=== PATIENT | female | born 1950 | race Caucasian/White ===

== ENCOUNTER 2021-10-17 10:45 | Outpatient (CLI) | payer MEDICARE, SELFPAY ==
[2021-10-17 11:35] LABS: Basophils Percent Auto 0.6 % (0.2-1.2); Eosinophils Absolute Auto 0.1 K/mm3 (0-0.3); Eosinophils Percent Auto 1.1 % (0-4.4); Hematocrit 43.9 % (37.0-47.0); Hemoglobin 14.3 g/dL (12.0-15.0); Immature Granulocyte Absolute 0.02 K/mm3 (0.00-0.031); Immature Granulocyte Percent A 0.3 % (0-0.5); Lymphocytes Absolute Auto 1.59 K/mm3 (0.9-3.2); Lymphocytes Percent Auto 25.1 % (18.3-44.2); Mean Corpuscular HGB Conc 32.6 g/dl (32-36); Mean Platelet Volume 9.3 fl (7.4-10.4); Monocytes Absolute Auto 0.5 K/mm3 (0.1-0.6); Monocytes Percent Auto 7.7 % (2.6-8.5); Neutrophils Absolute Auto 4.1 K/mm3 (1.3-6.7); Neutrophils Percent Auto 65.2 % (45.5-73.1); Platelet Count Result 374 k/mm3 (150-375); Red Blood Count 4.93 M/mm3 (4.2-5.4); Red Cell Distribution Width 13.8 % (11.5-14.5); White Blood Count 6.3 K/mm3 (4.5-10.0)
[2021-10-17 12:01] LABS: Alanine Aminotransferase 17 U/L (4-35); Albumin Level 4.4 g/dL (3.5-5.1); Alkaline Phosphatase 161 U/L (38-126); Anion Gap 9 mmol/L (8-16); Aspartate Amino Transferase 22 U/L (14-36); Bilirubin,Total 0.6 mg/dL (0.2-1.3); Blood Urea Nitrogen 15 mg/dL (7-17); Calcium 9.4 mg/dL (8.4-10.2); Carbon Dioxide 27 mmol/L (22-30); Chloride 103 mmol/L (98-107); Cholesterol 204 mg/dL (0-200); Estimated Glomerular Filt Rate > 60; Glucose 126 mg/dL (65-110); HDL Direct 54 mg/dL; Potassium 4.1 mmol/L (3.4-5.0); Sodium 139 mmol/L (137-145); Triglycerides 144 mg/dL (<150)
[2021-10-17 12:06] LABS: LDL Cholesterol Direct 100 mg/dL
[2021-10-17 12:39] LABS: Vitamin D 25 Hydroxy < 12.8 ng/mL
[2021-10-21 19:24] LABS: Mitochondrial (M2) Ab (IgG) 52.8 U (<=20.0)
== END 2021-10-17 10:46 | disposition home or self-care (01) ==
PROVIDERS: PCP Internal Medicine; Visit Provider Internal Medicine
DX: R53.83 Other fatigue (principal); R73.9 Hyperglycemia, unspecified; R74.8 Abnormal levels of other serum enzymes; E55.9 Vitamin D deficiency, unspecified; E78.5 Hyperlipidemia, unspecified
CPT/HCPCS: 36415; 80053; 80061; 82306; 82607; 82746; 83520; 84443; 85025

== ENCOUNTER 2022-02-23 00:52 | Day surgery (SDC) | payer MEDICARE, SELFPAY ==
[2021-11-15 11:55] VITALS: BMI 38.9
[2021-12-26 12:45] VITALS: BMI 38.9
[2022-02-09 16:06] VITALS: BMI 36.8
--- NOTE | 2022-02-22 13:25 | WPDANESEPPF ---
Anes - Initial Pre Proc Eval Procedure: Operation Date: 02/23/22 08:00 Proposed Procedures p Esophagogastroduodenoscopy & Screen Colonoscopy - Joe Madrigal MD Date/Time: 02/22/22 13:25 Surgeon: Joe Madrigal MD Pre Op Diagnosis: Gerd, Hx of Colon Polyp Patient Data Age: 71 Gender: F Height: 1.63 m Weight: 97.5 kg Allergies Allergy/AdvReac Type Severity Reaction Status Date / Time Iodinated Contrast Media Allergy Mild hives Verified 02/09/22 16:03 Home Medications Medication Instructions Recorded Confirmed Type venlafaxine 37.5 mg 37.5 mg PO DAILY #90 caps 05/02/21 02/09/22 Rx capsule,extended release 24 hr amlodipine 10 mg tablet 10 mg PO DAILY #90 tabs 09/24/21 02/09/22 Rx hydrochlorothiazide 25 mg tablet 25 mg PO DAILY #90 tabs 10/12/21 02/09/22 Rx alendronate 70 mg tablet 70 mg PO WEEKLY 10/17/21 02/09/22 History aspirin 81 mg tablet,delayed 81 mg PO DAILY 10/17/21 02/09/22 History release buspirone 5 mg tablet 5 mg PO BID 10/17/21 02/09/22 History dicyclomine 20 mg tablet 20 mg PO DAILY #90 tabs 10/17/21 02/09/22 Rx fexofenadine 180 mg tablet 180 mg PO DAILY 10/17/21 02/09/22 History (Parris Allergy) paroxetine HCl 40 mg tablet 40 mg PO DAILY 10/17/21 02/09/22 History dexlansoprazole 60 mg 60 mg PO DAILY #90 caps 10/18/21 02/09/22 Rx capsule,biphase delayed release (Dexilant) ezetimibe 10 mg tablet (Zetia) 10 mg PO DAILY #90 tabs 01/12/22 02/09/22 Rx potassium chloride 10 mEq 10 meq PO DAILY #90 caps 01/12/22 02/09/22 Rx capsule,extended release triamcinolone acetonide 0.1 % 1 applic topical BID #30 grams 01/12/22 02/09/22 Rx topical cream Patient hx anesthesia problems: none Family hx anesthesia problems: none Results Review: All pre-operative results and documents have been reviewed as part of the pre-operative evaluation. [facility] Past Medical History Medical History (Updated 02/23/22 @ 07:21 by Joe Madrigal MD) Alopecia Anxiety Elevated alkaline phosphatase level Essential (primary) hypertension Gastro-esophageal reflux disease without esophagitis History of bruising easily History of compression fracture of spine T-12 History of rib fracture (Multiple) - Lt Side Hyperglycemia Hyperlipidemia Pes anserine bursitis Sleep apnea in adult Vitamin D deficiency, unspecified Surgical History Surgical History History of cholecystectomy (~02/24/16) History of umbilical hernia repair Hx of total knee arthroplasty (~2006) Bilateral Knees Family History Family History Mother Patient's mother is Brain tumor Sibling Cerebrovascular accident Cancer Throat Father Cancer Throat, Back & Bone Other Diabetes mellitus Hypertension Social History Social History Smoking status: Never smoker Second hand tobacco smoke exposure: No Alcohol intake: never Substance use: current Substance use type: does not use Living arrangements: alone Spiritual care concerns: No Anes - Eval Final PreProcedure Day of Procedure 02/22/22 13:25 Patient weight: obese Heart: regular rate and rhythm Lungs: clear to auscultation Airway: Mallampati scale class II Neurological: alert and oriented Last oral intake: >/= 8 hours ASA classification: III Emergent: no Anesthetic plan: proceed Anesthesia type and monitoring: general GIVS and standard monitoring Results Review: All pre-operative results and documents have been reviewed as part of the pre-operative evaluation. Informed Consent: The patient's anesthetic plan and its attendant risks and benefits were discussed with the patient/family/POA. Questions were solicited and answers provided to the satisfaction of the patient/family/POA.
[2022-02-23 06:49] VITALS: BP 143/79; PULSE 85; RESP 18; TEMP 36; O2SAT 99; BMI 36.6
[2022-02-23] MEDS: LACTATED RINGERS 1,000 ML 150 ML IV CONT (06:59)
--- NOTE | 2022-02-23 07:19 | WPDGICN ---
Assessment and Plan Assessment and plan (1) Encounter for screening colonoscopy: Code(s): Z12.11 - Encounter for screening for malignant neoplasm of colon Status: Acute Assessment and Plan: Patient presents today for screening colonoscopy. She has a history of prior colon polyps. Further recommendations will be given after endoscopy. (2) GERD (gastroesophageal reflux disease): Code(s): K21.9 - Gastro-esophageal reflux disease without esophagitis Status: Acute Assessment and Plan: Patient has a stable history of GE reflux disease. Currently treated with Dexilant 60mg p.o. daily. Plan for continued anti-reflux measures. Elevating head of bed at night. No late meals. Further recommendations may be given after endoscopy. GI Consult Note Consult date/time: 02/23/22 07:19 Reason for consult: GE reflux disease and history of colon polyps. HPI: Lucero Larios is a 71 year old female Presents for colonoscopy and EGD. Patient previously followed by Dr. Joe Fitzpatrick. She has a history of acid reflux. She states occasionally will have difficulty swallowing. Has had significant heartburn in the past. Currently swallowing well with no substernal heartburn. currently being treated with Dexilant 60mg p.o. daily. Patient has a history of colon polyps. On several occasions. Most recent colonoscopy 4 years ago. Patient presents today for screening colonoscopy as well as EGD to assess status. Review of Systems Review of Systems: Review of systems noncontributory [facility] Past Medical History Medical History (Updated 02/23/22 @ 07:21 by Joe Madriagl MD) Alopecia Anxiety Elevated alkaline phosphatase level Essential (primary) hypertension Gastro-esophageal reflux disease without esophagitis History of bruising easily History of compression fracture of spine T-12 History of rib fracture (Multiple) - Lt Side Hyperglycemia Hyperlipidemia Pes anserine bursitis Sleep apnea in adult Vitamin D deficiency, unspecified Surgical History Surgical History History of cholecystectomy (~02/24/16) History of umbilical hernia repair Hx of total knee arthroplasty (~2006) Bilateral Knees Family History Family History Mother Patient's mother is Brain tumor Sibling Cerebrovascular accident Cancer Throat Father Cancer Throat, Back & Bone Other Diabetes mellitus Hypertension Social History Social History Smoking status: Never smoker Second hand tobacco smoke exposure: No Alcohol intake: never Substance use: current Substance use type: does not use Living arrangements: alone Spiritual care concerns: No Meds Home Medications and Allergies Home Medications Medication Instructions Recorded Confirmed Type venlafaxine 37.5 mg 37.5 mg PO DAILY #90 caps 05/02/21 02/09/22 Rx capsule,extended release 24 hr amlodipine 10 mg tablet 10 mg PO DAILY #90 tabs 09/24/21 02/09/22 Rx hydrochlorothiazide 25 mg tablet 25 mg PO DAILY #90 tabs 10/12/21 02/09/22 Rx alendronate 70 mg tablet 70 mg PO WEEKLY 10/17/21 02/09/22 History aspirin 81 mg tablet,delayed 81 mg PO DAILY 10/17/21 02/09/22 History release buspirone 5 mg tablet 5 mg PO BID 10/17/21 02/09/22 History dicyclomine 20 mg tablet 20 mg PO DAILY #90 tabs 10/17/21 02/09/22 Rx fexofenadine 180 mg tablet 180 mg PO DAILY 10/17/21 02/09/22 History (Parris Allergy) paroxetine HCl 40 mg tablet 40 mg PO DAILY 10/17/21 02/09/22 History dexlansoprazole 60 mg 60 mg PO DAILY #90 caps 10/18/21 02/09/22 Rx capsule,biphase delayed release (Dexilant) ezetimibe 10 mg tablet (Zetia) 10 mg PO DAILY #90 tabs 01/12/22 02/09/22 Rx potassium chloride 10 mEq 10 meq PO DAILY #90 caps 01/12/22 02/09/22 Rx
[2022-02-23 08:18] VITALS: BP 122/69; PULSE 79; RESP 18; TEMP 36; O2SAT 100
--- NOTE | 2022-02-23 08:18 | SUR.OPER ---
EGD START: 075; END: 0757. COLONOSCOPY START: 0804; END 08.
[2022-02-23 08:28] VITALS: BP 122/68; PULSE 71; RESP 16; TEMP 36; O2SAT 99
[2022-02-23 08:39] VITALS: BP 138/79; PULSE 73; RESP 18; TEMP 36; O2SAT 100
== END 2022-02-23 08:57 | disposition home or self-care (01) ==
PROVIDERS: PCP Internal Medicine; Visit Provider Internal Medicine Gastroenterology
PROC: 0DJ08ZZ Inspection of Upper Intestinal Tract, Via Natural or Artificial Opening Endoscopic (ICD-10-PCS; CPT 43235; principal; 2022-02-23 08:00)
DX: Z12.11 Encounter for screening for malignant neoplasm of colon (principal); Z86.010 Personal history of colon polyps; K64.8 Other hemorrhoids; F41.9 Anxiety disorder, unspecified; I10 Essential (primary) hypertension; R73.9 Hyperglycemia, unspecified; E78.5 Hyperlipidemia, unspecified; E55.9 Vitamin D deficiency, unspecified; L65.9 Nonscarring hair loss, unspecified; M71.50 Other bursitis, not elsewhere classified, unspecified site; Z90.49 Acquired absence of other specified parts of digestive tract; Z79.82 Long term (current) use of aspirin; E66.9 Obesity, unspecified; Z68.36 Body mass index [BMI] 36.0-36.9, adult; K44.9 Diaphragmatic hernia without obstruction or gangrene
CPT/HCPCS: 43235; G0105; J2704; J7120

== ENCOUNTER 2025-06-24 14:40 | Emergency (ER) | payer MEDICARE, MEDICAID, SELFPAY ==
--- OUTSIDE RECORDS SUMMARY | 2025-06-23 10:08 | XMS_ITS | Encounter Summary ---
Author Organization [facility] Address [facility] [place] [address] Care Team Providers Care Turn Operator Name Role Phone Aneta Huang Unavailable [phone] Aneta Huang Primary Care Provider [phone] Reason for Referral * Imaging (Routine) - Closed Specialty Diagnoses / Procedures Referred By Lobito jacobo Referred To Contact RADIOLOGY Diagnoses Chronic pansinusitis Procedures CT SINUS WO CON Aneta Huang FNP [address] [place] [address] [place] [address] Phone: tel: fax: Referral ID Status Reason Start Date Expiration Date Visits Re quested Visits Authorized [id number] Closed 06/04/2025 06/05/2026 1 1 Reason for Visit * Imaging (Routine) - Closed Specialty Diagnoses / Procedures Referred By Lobito jacobo Referred To Contact RADIOLOGY Diagnoses Chronic pansinusitis Procedures CT SINUS WO CON Aneta Huang FNP [address] [place] [address] [place] [address] Phone: tel: fax: Referral ID Status Reason Start Date Expiration Date Visits Re quested Visits Authorized [id number] Closed 06/04/2025 06/05/2026 1 1 Encounter Details Date Type Department Care Team (Late st Contact Info) Description 06/23/2025 10:08 AM CDT Hospital Encounter [facility] [address] [place] [address] Aneta Huang FNP [address] [place] [address] Arrived Social History Tobacco Use Types Packs/Day Years Used Date Smoking Tobacco: Never Smokeless Tobacco: Never Alcohol Use Standard Drinks/Week Comments Not Currently 0 (1 standard drink = 0.6 oz pur e alcohol) PHQ-2 Answer Date Recorded Patient Health Questionnaire-2 Score 0 09/26/2024 Comments No Sex and Gender Information Value Date Recorded Sex Assigned at Female 09/25/2024 2:29 PM CAP MACHINE OPERATOR Legal Sex Female 10:35 PM CAP MACHINE OPERATOR Gender Identity Female 09/25/2024 2:29 PM CAP MACHINE OPERATOR Sexual Orientation Straight 09/25/2024 2: 29 PM CAP MACHINE OPERATOR documented as of this encounter Plan of Treatment Upcoming Encounters Date Type Department Care Team (Late st Contact Info) Description 01/06/2026 8:20 AM CDT Office Visit [facility] Medical Group Multispecialty Care - [address], [address] [place] [id number] Richard Wood MD [address] [place] [address] [place] [id number] Pending Results Name Type Priority Associated Diagnoses Date /Time CT SINUS WO CON CT Routine Chronic pansinusitis 06/23/2025 10:21 AM CDT Scheduled Orders Name Type Priority Associated Diagnoses Orde r Schedule CT SINUS WO CON CT Routine Chronic pansinusitis Once for 1 Occurrences starting 06/23/2025 until 06/23/2025 documented as of this encounter Visit Diagnoses Diagnosis Chronic pansinusitis Other chronic sinusitis documented in this encounter Additional Health Concerns Assessment Noted Time PHQ-9 Depression Total Score: 0 09/25/19 25 2:26 PM CAP MACHINE OPERATOR documented as of this encounter Care Teams Turn Operator Relationship Specialty Start Date End Date Aneta Huang FNP [address] [place] [address] PCP - General NURSE PRACTITIONER 10/20/24 Aneta Huang FNP [address] [place] [address] [place] [address] NURSE PRACTITIONER 09/29/24 documented as of this encounter
[2025-06-24 14:42] VITALS: BP 145/85; PULSE 78; RESP 18; TEMP 36.7; O2SAT 99
--- NOTE | 2025-06-24 14:53 | ED.FEMALEGU ---
HPI - Female Genitourinary General Chief complaint: Urogenital-Female Stated complaint: irritation when urinating Time Seen by Provider: 06/24/25 14:52 Source: patient Mode of arrival: ambulatory Limitations: no limitations History of Present Illness HPI Narrative: 75 year old female presents to the Emergency Department complaining of urinary frequency with voiding small amounts. Onset 3 days ago. Denies dysuria. Denies fever, nausea, vomiting, back pain. Denies abdominal pain. Patient is concerned about possible urinary tract infection. MD elicited complaint: UTI Onset (ago): day(s) (3) Urinary symptoms: Urgency and Frequency Exacerbating factors: none Relieving factors: none Treatment prior to arrival: other (drinking cranberry juice) Related Data Home Medications ?Medication ?Instructions ?Recorded ?Confirmed ?Last Taken ?Type alendronate 70 mg tablet 70 mg PO WEEKLY 10/17/21 02/09/22 Unknown History aspirin 81 mg tablet,delayed 81 mg PO DAILY 10/17/21 02/09/22 Unknown History release buspirone 5 mg tablet 5 mg PO BID 10/17/21 02/09/22 Unknown History fexofenadine 180 mg tablet 180 mg PO DAILY 10/17/21 02/09/22 Unknown History (Parris Allergy) paroxetine HCl 40 mg tablet 40 mg PO DAILY 10/17/21 02/09/22 Unknown History Allergies Allergy/AdvReac Type Severity Reaction Status Date / Time Iodinated Contrast Media Allergy Mild hives Verified 06/24/25 15:20 Review of Systems Review of Systems: All systems reviewed & are unremarkable except as noted in HPI and below Constitutional: Constitutional: Reports as per HPI and Denies chills Eyes: Eyes: Reports as per HPI ENT: Reports system reviewed and no additional complaints, except as documented Cardiovascular: Cardiovascular: Reports as per HPI Respiratory: Respiratory: Reports as per HPI Gastrointestinal: Gastrointestinal: Reports as per HPI, Reports no additional gastrointestinal complaints, Denies abdominal pain, Denies diarrhea, Denies nausea and Denies vomiting Genitourinary: Genitourinary: Reports no additional female genitourinary complaints, Reports as per HPI, Reports nocturia, Denies dysuria and Denies flank pain Musculoskeletal: Musculoskeletal: Reports no additional musculoskeletal complaints, Reports as per HPI and Denies back pain Integumentary/Breasts: Skin/Breast: Reports system reviewed and no additional complaints, except as docu Neurologic: Reports system reviewed and no additional complaints, except as documented Psychiatric: Psychiatric: Reports no additional psychiatric complaints Endocrine: Endocrine: Reports no additional endocrine complaints Hematologic/Lymphatic: Hematologic/Lymphatic: Reports no additional hematologic/lymphatic complaints Allergic/Immunologic: Allergic/Immunologic: Reports no additional allergic/immunologic complaints [facility] Past Medical History Medical History Anxiety Pes anserine bursitis History of rib fracture (Multiple) - Lt Side History of compression fracture of spine T-12 History of bruising easily Alopecia Hyperglycemia Elevated alkaline phosphatase level Essential (primary) hypertension Gastro-esophageal reflux disease without esophagitis Hyperlipidemia Sleep apnea in adult Vitamin D deficiency, unspecified Surgical History Surgical History History of umbilical hernia repair Hx of total knee arthroplasty (~2006) Bilateral Knees History of cholecystectomy (~02/24/16) Family History Family History Mother Patient's mother is Brain tumor Sibling Cerebrovascular accident Cancer Throat Father Cancer Throat, Back & Bone Other Diabetes mellitus Hypertension Social History Social History Smoking status: Never smoker Second hand tobacco smoke exposure: No Alcohol intake: never Substance use: current Substance use type: does not use Living arrangements: alone Spiritual care concerns: No Exam Const: General: healthy appearing Nutritional Appearance: obese Orientation/consciousness: patient oriented x3 Limitations: no limitations HENMT: Head: normal to inspection Ears: external ears normal Face/Nose/Sinus: Normal external nose present Face and sinus: normal facial exam Eyes: Pupils: Equal, round and reactive pupils present EOM: EOMs intact bilaterally Direct Ophthalmoscopy: no photophobia Neck: Neck: normal visual inspection Chest: Chest palpation & inspection: normal inspection of the chest Resp: Effort & Inspection: normal respiratory effort Auscultation: clear to auscultation bilaterally Cardio: Rate: regular rate Rhythm: regular rhythm GI: Inspection: non-distended GI Palp: Yes Soft to palpation, No Tenderness to palpation present (GI) and No Guarding due to palpation present (GI) : General: Yes bladder normal to palpation Back/Spine/Pelvis: Back: no CVA tenderness Skin: General skin exam: normal color Rashes: no rashes Wounds: no wounds Neuro: General: patient oriented x3 Other: grossly normal Extrem: General: normal to inspection and no clubbing, cyanosis or edema Psych: Appearance: grossly normal Course Course Emergency Course: 75 y/o female presents to the Emergency Department complaining of urinary frequency and urgency x 3 days. Denies dysuria. No fever, nausea, vomiting, diarrhea, back pain. PE: unremarkable UA: unremarkable FSBS: 100 *reviewed and discussed results with patient. Discussed further management. Patient state 'what am I supposed to do about the pain? Patient had denied any pain. Asked where she was having pain and she states down below [vaginal] Denies vaginal discharge. She has a farm tractor operator. Recommend she contact them for vaginal pain. Rx and Instructions Vital Signs Vital signs: Vital Signs Temperature 36.7 C 06/24/25 14:42 Pulse Rate 78 06/24/25 14:42 Respiratory Rate 18 06/24/25 14:42 Blood Pressure 145/85 H 06/24/25 14:42 Pulse Oximetry 99 06/24/25 14:42 Oxygen Delivery Room Air 06/24/25 14:42 Temperature 36.7 C 06/24/25 14:42 Pulse Rate 78 06/24/25 14:42 Respiratory Rate 18 06/24/25 14:42 Blood Pressure 145/85 H 06/24/25 14:42 Pulse Oximetry 99 06/24/25 14:42 Oxygen Delivery Room Air 06/24/25 14:42 MDM - Female Genitourinary Lab Data Labs: Lab Results 06/24/25 06/24/25 Range/Units 14:51 15:14 POC Capillary Glucose Pending Urine Color Light yellow (Yellow) Urine Appearance Clear (Clear) Urine pH 6.0 (5.0-8.0) Ur Specific [place] 1.015 (1.010-1.020) Urine Protein Negative (Negative) Urine Glucose (UA) Negative (Negative) Urine Ketones Negative (Negative) Ur Blood (Man) Negative (Negative) Urine Nitrate Negative (Negative) Urine Bilirubin Negative (Negative) Urine Urobilinogen 0.2 (0.2-1.0) mg/dL Ur Leukocyte Esterase Negative (Negative) Discharge Plan Discharge Clinical Impression: Urinary frequency, Vaginal pain Patient Disposition: Home Condition: Stable Instructions: Urinary Urgency and Frequency (DC) Additional Instructions: Take medication as prescribed Follow up with your Primary Care Provider Follow up with your [employer] Patient Language: Latvian Prescriptions: No Action dicyclomine 20 mg tablet 20 mg PO DAILY Qty: 90 1RF buspirone 5 mg tablet 5 mg PO BID aspirin 81 mg tablet,delayed release (DR/EC) 81 mg PO DAILY paroxetine HCl 40 mg tablet 40 mg PO DAILY alendronate 70 mg tablet 70 mg PO WEEKLY fexofenadine [Parris Allergy] 180 mg tablet 180 mg PO DAILY venlafaxine 37.5 mg capsule,extended release 24hr 37.5 mg PO DAILY Qty: 90 1RF amlodipine 10 mg tablet 10 mg PO DAILY Qty: 90 3RF triamcinolone acetonide 0.1 % cream 1 applic topical BID Qty: 30 0RF ezetimibe [Zetia] 10 mg tablet 10 mg PO DAILY Qty: 90 1RF hydrochlorothiazide 25 mg tablet 25 mg PO DAILY Qty: 90 0RF dexlansoprazole [Dexilant] 60 mg capsule,biphase delayed releas 60 mg PO DAILY Qty: 90 0RF potassium chloride 10 mEq capsule, extended release 10 meq PO DAILY Qty: 90 0RF Follow-up/Referrals: Jun Razo DO [Primary Care Provider, Family Practice]
--- NOTE | 2025-06-24 14:55 | PC.NURSE ---
DR LEDESMA AT THE BEDSIDE
[2025-06-24 14:56] LABS: Appearance Urine Clear (Clear); Glucose Urine UA Negative (Negative); Nitrate Urine Negative (Negative); Specific Grav Ur 1.015 (1.010-1.020)
[2025-06-24 15:00] LABS: Add Urine Microscopic? NO; Leukocyte Esterase Ur Negative (Negative)
[2025-06-24 15:36] VITALS: BP 138/80; PULSE 76; RESP 18; O2SAT 100
--- OUTSIDE RECORDS SUMMARY | 2025-06-24 19:47 | XMS_ITS | Encounter Summary ---
Author Organization [facility] Address [facility] [place] [address] Care Team Providers Care Carbon Capture Power Plant Operator Name Role Phone Aneta Huang EMERGENCY COMMUNICATIONS OFFICER Unavailable [phone] Aneta Huang EMERGENCY COMMUNICATIONS OFFICER Primary Care Provider [phone] Encounter Details Date Type Department Care Team (Latest Contact Info) Description 06/23/2025 Travel Social History Tobacco Use Types Packs/Day Years Used Date Smoking Tobacco: Never Smokeless Tobacco: Never Alcohol Use Standard Drinks/Week Comments Not Currently 0 (1 standard drink = 0.6 oz pur e alcohol) PHQ-2 Answer Date Recorded Patient Health Questionnaire-2 Score 0 09/26/2024 Comments No Sex and Gender Information Value Date Recorded Sex Assigned at Female 09/25/2024 2:29 PM ONLINE TUTOR Legal Sex Female 10:35 PM ONLINE TUTOR Gender Identity Female 09/25/2024 2:29 PM ONLINE TUTOR Sexual Orientation Straight 09/25/2024 2: 29 PM ONLINE TUTOR documented as of this encounter Plan of Treatment Upcoming Encounters Date Type Department Care Team (Late st Contact Info) Description 01/06/2026 8:20 AM CDT Office Visit [facility] Medical Group Multispecialty Care - [facility] [address] [facility] [place] [id number] Richard Wood MD [address] [facility] [address] [place] [address] documented as of this encounter Visit Diagnoses Not on filedocumented in this encounter Additional Health Concerns Assessment Noted Time PHQ-9 Depression Total Score: 0 09/25/19 2:26 PM ONLINE TUTOR documented as of this encounter Care Teams Carbon Capture Power Plant Operator Relationship Specialty Start Date End Date Aneta Huang FNP [address] [place] [address] PCP - General NURSE PRACTITIONER 10/20/24 Aneta Huang FNP [address] [facility] [place] [address] NURSE PRACTITIONER 09/29/24 documented as of this encounter
--- OUTSIDE RECORDS SUMMARY | 2025-06-24 19:47 | XMS_ITS | Encounter Summary ---
Author Organization [facility] Address [facility] [place] [address] Care Team Providers Care Hypercil Core Transformer Assembler Name Role Phone Cal Stout MD Primary Care Provider [phone] Ashanti Mathew APRN Primary Care Provider + [phone] Nevaeh Andrews PA-C Primary Care Provider [phone] Mckenzie Barahona CABLE TENDER Primary Care Provider + [phone] Bam Watts MD Primary Care Provider [phone] Aneta Huang BUSINESS OFFICE TECHNOLOGY INSTRUCTOR Primary Care Provider [phone] Bam Watts MD Primary Care Provider [phone] Aneta Huang BUSINESS OFFICE TECHNOLOGY INSTRUCTOR Unavailable [phone] Aneta Huang BUSINESS OFFICE TECHNOLOGY INSTRUCTOR Primary Care Provider [phone] Encounter Details Date Type Department Care Team (Late st Contact Info) Description 02/08/2019 Abstract [facility]FL CONVERSION [address] [place] [address] , Generic Conversion, Social History Tobacco Use Types Packs/Day Years Used Date Smoking Tobacco: Never Assessed Comments Unknown Sex and Gender Information Value Date Recorded Sex Assigned at Female 09/25/2024 2:29 PM CUSTOMER RELATIONSHIP SPECIALIST Legal Sex Female 10:35 PM CUSTOMER RELATIONSHIP SPECIALIST Gender Identity Female 09/25/2024 2:29 PM CUSTOMER RELATIONSHIP SPECIALIST Sexual Orientation Straight 09/25/2024 2: 29 PM CUSTOMER RELATIONSHIP SPECIALIST documented as of this encounter Plan of Treatment Upcoming Encounters Date Type Department Care Team (Late st Contact Info) Description 01/06/2026 8:20 AM CDT Office Visit [facility] Medical Group Multispecialty Care - [facility] [address] [facility] [place] [address] Richard Wood MD 3rd [facility] [address] [place] [address] documented as of this encounter Visit Diagnoses Not on filedocumented in this encounter Additional Health Concerns Infection Onset Date Last Indicated Resolved Time COVID-19 Rule Out 08/17/2023 08/17/2023 08/17/2023 3:11 PM CUSTOMER RELATIONSHIP SPECIALIST COVID-19 Confirmed 08/17/2023 08/17/2023 12:32 AM CUSTOMER RELATIONSHIP SPECIALIST documented as of this encounter Care Teams Hypercil Core Transformer Assembler Relationship Specialty Start Date End Date Cal Stout MD [address] [place] [address] PCP - General INTERNAL MEDICINE 07/19/19 09/27/22 Ashanti Mathew APRN [address] [place] [address] PCP - General NURSE PRACTITIONER 09/28/22 06/10/23 Nevaeh Andrews PA-C [address] [place] [address] PCP - General PHYSICIAN DIGITAL ARCHIVIST 06/11/23 04/06/24 [place] [address] [place] [address] PCP - General Nurse Practitioner Family 04/07/2404/04 [place] [address] [place] [address] PCP - General INTERNAL MEDICINE 04/25/24 09/25/24 Aneta Huang FNP [address] [place] [address] PCP - General NURSE PRACTITIONER 09/26/24 09/28/24 [place] [address] [place] [address] PCP - General INTERNAL MEDICINE 09/29/24 10/19/24 Aneta Huang FNP [address] [facility] [place] [address] PCP - General NURSE PRACTITIONER 10/20/24 Aneta Huang FNP [address] [facility] [place] [address] NURSE PRACTITIONER 09/29/24 documented as of this encounter
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
== END 2025-06-24 15:36 | disposition home or self-care (01) ==
LOC: CHSED 15:32
PROVIDERS: Emergency Provider Emergency Medicine; PCP Family Medicine
DX: R35.0 Frequency of micturition (principal); R10.20 Pelvic and perineal pain unspecified side; I10 Essential (primary) hypertension; E78.5 Hyperlipidemia, unspecified
CPT/HCPCS: 81003; 82948; 99283